=== PATIENT | female | born 1980 | race Caucasian/White ===

== ENCOUNTER 2024-12-16 08:18 | Outpatient (REF) | payer OTHER, SELFPAY ==
--- OUTSIDE RECORDS SUMMARY | 2024-12-16 08:23 | XMS_ITS | Clinical Summary ---
Author Organization [facility] ity Address [address] [place] [address] Care Team Providers Care Mortgage Loan Funder Name Role Phone Shantelle Liu MD Primary Care Prov ider Allergies No known active allergies Medications ibuprofen (ADVIL,MOTRIN) 600 mg tablet Take 1 tablet (600 mg total) by mouth 1 (one) time. for 1 dose. - 10/30/2017 Active multivit with calcium,iron,min (MULTIPLE VITAMIN, WOMENS ORAL) Take by mouth. Active loratadine (CLARITIN ORAL) Take by mouth. Active Active Problems Problem Noted Date Diagnosed Date Anxiety 01/25/2009 Immunizations Name Administration Dates Next Due Hepatitis B (Kvoiddi-C-Edsdc , Recombivax HB-Adult) 19yo and older 03/10/2002 Influenza Quadravalent, MDCK , 0.5ml, with preservative (Flucelvax) 6mo and older 06/12/2017 Influenza trivalent, 0.5mL, preservative free (Fluarix; FluLaval; Fluzone) ages 6mo and older (Afluria) 3 years and older 08/15/2016 Influenza trivalent, with pr eservative (Fluzone; Afluria) 6mo and older 05/04/2015 Tdap Tetanus diptheria acell ular pertussis (Boostrix; Adacel) 7yo and older 01/16/2017 Social History Tobacco Use Types Packs/Day Years Used Date Smoking Tobacco: Never Assessed Comments Unknown Sex and Gender Information Value Date Recorded Sex Assigned at Not on file Legal Sex Female 12:37 PM EST Gender Identity Not on file Sexual Orientation Not on file Plan of Treatment Health Maintenance Due Date Last Done Comments Breast Cancer Screening 1982 Hepatitis B Vaccines (2 of 3 - 19+ 3-dose series) 04/07/2002 03/10/2002 Cervical Cancer Screening: P ap Smear 07/05/2018 07/05/2015, 07/05/2015 COVID-19 Vaccine (1 - 2023-2 5 season) 2024 Depression Screening 09/06/2024 Social Influencers of Health Screening 09/06/2024 Influenza Vaccine (Season Ended) 2025 06/12/2017, 08/15/2016, 05/04/2015 DTaP,Tdap,and Td Vaccines (2 - Td or Tdap) 01/16/2027 01/16/2017 Hepatitis C Screening Completed 06/22/2015 HIV Screening Completed 07/28/2016 HIB Vaccines Aged Out No longer eligi ble based on patient's age to complete this topic HPV Vaccines Aged Out No longer eligi ble based on patient's age to complete this topic Hepatitis A Vaccines Aged Out No long er eligible based on patient's age to complete this topic IPV Vaccines Aged Out No longer eligi ble based on patient's age to complete this topic MMR Vaccines Aged Out No longer eligi ble based on patient's age to complete this topic Meningococcal ACWY Vaccine Aged Out N o longer eligible based on patient's age to complete this topic Meningococcal B Vaccine Aged Out No l onger eligible based on patient's age to complete this topic Pneumococcal Vaccine: Pediatrics (0 to 5 Years) and At-Risk Patients (6 to 64 Years) Aged Out No longer eligible b ased on patient's age to complete this topic RSV Immunization Patients Under 20 months Aged Out No longer eligible b ased on patient's age to complete this topic Varicella Vaccines Aged Out No longer eligible based on patient's age to complete this topic Procedures Procedure Name Priority Date/Time Associated Diagnosis Comments HIV SCREENING Routine 07/28/2016 HPV Routine 07/05/2015 HEPATITIS C SCREENING Routine 06/22/2015 from Last 3 Months or Most Recently Relevant to Health Maintenance Results * HIV Screening (07/28/2016) Pathologist [facility] HIV Screening abstracted Historical Provider HEALTH MAINTENANCE Final Result * Cervical Cancer Screening: HPV (07/05/2015) Pathologist [facility] Cervical Cancer Screening: HPV negative, abstracted Historical Provider HEALTH MAINTENANCE Final Result * Hepatitis C Screening (06/22/2015) Pathologist [facility] Hepatitis C Screening abstracted [facility] Provider HEALTH MAINTENANCE Final Result from Last 3 Months or Most Recently Relevant to Health Maintenance Care Teams Mortgage Loan Funder Relationship Specialty Start Date End Date Shantelle Liu MD PCP - General Internal Medicine 01/30/15
[2024-12-16 10:17] LABS: MANUAL DIFF FLAG NO
[2024-12-16 10:28] LABS: Basophils Absolute Auto 0.1 X10*3/uL (0.0-0.2); Basophils Percent Auto 0.6 % (0-2); Eosinophils Absolute Auto 0.1 X10*3/uL (0.0-0.4); Eosinophils Percent Auto 0.9 % (0-4); Hematocrit 42.3 % (37.0-47.0); Hemoglobin 13.7 g/dl (12.0-16.0); Imm Gran Abs Auto 0.03 X10*3/uL (0.00-0.03); Imm Gran Pct Auto 0.4 % (0.0-0.4); Lymphocytes Absolute Auto 1.9 X10*3/uL (1.2-4.9); Lymphocytes Percent Auto 23.7 % (20-40); Mean Corpuscular HGB Conc 32.4 g/dl (31.0-35.0); Mean Corpuscular Hemoglobin 30.2 pg (27.0-33.0); Mean Corpuscular Volume 93.2 fL (80.0-98.0); Mean Platelet Volume 10.3 fL (9.4-12.3); Monocytes Absolute Auto 0.4 X10*3/uL (0.1-1.2); Monocytes Percent Auto 5.4 % (2-11); Neutrophils Absolute Auto 5.4 x10*3/uL (2.0-8.3); Platelet Count 228 X10*3/uL (160-400); Red Blood Count 4.54 X10*6/uL (4.20-5.50); Red Cell Distribution Width 11.8 % (11.0-16.0); White Blood Count 7.8 X10*3/uL (4.8-10.8)
[2024-12-16 10:53] LABS: Appearance Urine Clear; Color Urine Yellow; Glucose Urine UA Negative (Negative); Leukocyte Esterase Urine Small (1+) (Negative); Nitrite Urine Negative (Negative); Specific Gravity - Urine 1.025 (1.005-1.025); UMIC TRIGGER UACC YES; Urine Blood Negative (Negative); Urine Ketones Negative (Negative); Urine Protein Negative (Neg-Trace)
[2024-12-16 11:02] LABS: Cortisol Random 13.9 ug/dL
[2024-12-16 11:03] LABS: Bacteria Urine Trace (None Seen); Hyaline Casts Urine 0-2 /LPF (0-2); RBC Urine 0-2 /HPF (0-2); Squamous Epithelial Cell Urine 0-2 /HPF (0-2); UACC Culture Trigger YES
[2024-12-16 11:12] LABS: Alanine Aminotransferase 24 U/L (0-31); Albumin Level 4.2 g/dL (3.5-5.0); Alkaline Phosphatase 79 U/L (39-117); Anion Gap 9 (12-20); Aspartate Amino Transferase 21 U/L (5-31); Bilirubin Total 0.3 mg/dL (0.0-1.0); Blood Urea Nitrogen 20 mg/dL (9-16); Calcium 9.1 mg/dL (8.4-10.2); Carbon Dioxide 26 mmol/L (22-29); Chloride 109 mmol/L (96-108); Cholesterol 158 mg/dL (<200); Estimated Glomerular Filt Rate > 60; Glucose Fasting 90 mg/dL (60-99); HDL Cholesterol 57 mg/dL (>40); LDL Cholesterol Calculated 92 mg/dL (<100); Potassium 4.7 mmol/L (3.3-5.1); Sodium 139 mmol/L (135-145); TSH reflex Free T4 1.24 uIU/mL (0.32-4.0); Triglycerides 49 mg/dL (<150); Vitamin D 25-OH Total 23.5 ng/mL (>30)
[2024-12-16 11:16] LABS: Folate 6.6 ng/mL (> or = 4.0); Vitamin B12 517 pg/mL (200-900)
[2024-12-19 23:23] LABS: Follicle Stimulating Hormone 6.7 mIU/mL
[2024-12-20 03:17] LABS: Lyme Abs Screen <0.90 index
[2024-12-29 01:29] LABS: Estradiol Free 5.17 pg/mL; Estradiol, Ultrasensitive 267 pg/mL
== END 2024-12-16 08:19 | disposition home or self-care (01) ==
LOC: HO.10HDL 08:18
PROVIDERS: Visit Provider Physician Assistant
DX: Z00.00 Encounter for general adult medical examination without abnormal findings (principal); E55.9 Vitamin D deficiency, unspecified; R53.83 Other fatigue; F41.1 Generalized anxiety disorder; Z13.220 Encounter for screening for lipoid disorders; R73.01 Impaired fasting glucose
CPT/HCPCS: 36415; 80053; 80061; 81001; 82306; 82533; 82607; 82670; 82681; 82746; 83001; 83735; 84443; 85025; 86617; 86618; 87086

== ENCOUNTER 2025-05-17 09:57 | Outpatient (AMB) | payer BC, SELFPAY ==
--- NOTE | 2025-05-17 10:03 | A.OFFPC_ITS ---
Vital Signs 05/17/25 10:08 Height 5 ft 4.96 in Weight 153 lb 2 oz BMI 25.5 BP 118/70 Blood Pressure Location Rt brachial Position Sitting Respiration 12 Pulse 65 Pulse Source Pulse Oximeter Temp 98.5 F Temp Source Oral Pulse Oximetry (%) 98 Oxygen Delivery Method Room Air Intake Visit Reasons: cpe coming at 10 Intake Note: New patient visit Mail Handler Required: No Allergies No Known Allergies Allergy (Verified 05/17/25 10:06) Medication List - Last Reconciled 05/17/25 by Viki Whalen PA-C loratadine (Claritin) 10 mg PO DAILY Tobacco use date assessed: 05/17/25 Dental Screening Dental Screen Date: 05/17/25 Did you have a dental visit in the last 12 months?: Yes Did you have a dental problem in the last 6 months where you did not have access to dental care?: No Was dental information given to patient?: Patient has dentist HPI cpe coming at 10 HPI Details Pt is a 45 y/o female who presents today to establish care/physical exam. She has a hx of IBS, chronic sinusitis, exercise induced asthma Pulm: Uses albuterol as needed GI: has had a double endoscopy about 15 years ago. She has a hx of milk sensitivity. She states that ENT: has chronic sinusitis and had her deviation fixed about 15 years ago Psych: longstanding hx anxiety and depression. Following with a therapist. MSK: right shoulder pain that is been going on for the last year or so. She works as a dental hygienist and this is the said that she uses for scaling. She says that she does a lot of repetitive motions with this shoulder/arm. She gets a lot of popping and it feels like her shoulder is lacks at times and will pop in and out. She says that when she is running she has to run holding her shoulders more elevated so that way does not pop out of place. mammo: UTD, chin It Program Manager: [facility] Social History Housing: House Patient Tobacco Use Status: Never used Tobacco e-Cigarette/Vaping Use: Never Used Second Hand Smoke Exposure: No service: No Current occupational status: employed Current occupation: Dental hygenist Current occupational exposures/hazards: Yes Cognitive needs: No Hearing needs: No Vision needs: No Physical exam (Primary Care) Vital Signs: Last Vital Signs Temp 98.5 F 05/17/25 10:08 Pulse 65 05/17/25 10:08 Resp 12 05/17/25 10:08 BP 118/70 05/17/25 10:08 Pulse Ox 98 05/17/25 10:08 Oxygen Delivery Method Room Air 05/17/25 10:08 BMI result Body Mass Index 25.5 Tobacco/Smoking Status: Tobacco use Status Tobacco use date assessed 05/17/25 05/17/25 10:11 Patient Tobacco Use Status Never used Tobacco 05/17/25 10:11 e-Cigarette/Vaping Use Never Used 05/17/25 10:11 Const Orientation/consciousness: patient oriented x3 HENMT Ears: hearing grossly normal bilaterally and TM's normal bilaterally General nose exam: No nasal polyps present Face and sinus: Yes sinuses nontender Mouth: Normal oral and palatal mucosa present Eyes Pupils: Equal, round and reactive pupils present EOM: EOMs intact bilaterally Neck Neck: Yes full ROM and Yes no lymphadenopathy Thyroid: Thyroid normal Chest Chest palpation & inspection: normal inspection of the chest Resp Auscultation: clear to auscultation bilaterally Cardio Rate: regular rate Rhythm: regular rhythm Heart sounds: S1 normal heart sound present and S2 normal heart sound present Peripheral pulses: Peripheral pulses 2+ throughout GI Other: Soft, nontender Auscultation: normal bowel sounds Rectal Exam - Female: deferred General: Yes no CVA tenderness Back/Spine/Pelvis Other: Nontender Back: no CVA tenderness Skin General skin exam: no rashes or lesions noted Neuro General: patient oriented x3, gait normal, CN's II-XI intact bilaterally and leonardo p tendon reflexes 2+ bilaterally Cranial nerves: Yes Equal, round and reactive pupils present Motor exam (neuro): 5/5 motor strength present throughout Sensory Exam: double simultaneous stimulation for sensation normal Coordination: [id number] test normal and Romberg test negative Extrem General: Yes normal to inspection and Yes full ROM Psych Affect: normal affect Attitude: cooperative Thought process: Normal thought process present Thought content: Normal thought content present Insight: Good insight present (Psych) Judgement: Good judgement present (Psych) Coding Level of Care Code Est Pt Prev Care 40-64y(71579) Diagnoses Routine general medical examination at a health care facility Z00.00 Vitamin D deficiency E55.9 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 Labs reviewed. (2) Vitamin D deficiency: Code(s): E55.9 - Vitamin D deficiency, unspecified Category: Medical Plan: Intermittently using supplement. We will check labs (3) Instability of right shoulder joint: Code(s): M25.311 - Other instability, right shoulder Category: Medical Plan: Imaging ordered. We will follow up pending test results. Encouraged supportive therapy like PT or chiropractor at this point. If symptoms persist advised to let me know and we will consider MRI Orders: Orders XR shoulder RT min 2V Today M25.311 - Other instability, right shoulder, M25.511 - Pain in right shoulder Vitamin D 25-OH Total Today E55.9 - Vitamin D deficiency, unspecified Medications: New albuterol sulfate 90 mcg/actuation (Ventolin HFA) 2 puffs inhalation 6XD PRN 8.5 grams 3RF shortness of breath or wheezing
[2025-05-17 10:08] VITALS: BP 118/70; PULSE 65; RESP 12; TEMP 36.9; O2SAT 98; BMI 25.5
--- OUTSIDE RECORDS SUMMARY | 2025-05-17 12:05 | XMS_ITS | Clinical Summary ---
Author Organization [facility] ity Address [address] [place] [address] Care Team Providers Care Foam Machine Operator Name Role Phone Shantelle Liu MD Primary [...] Name Administration Dates Next Due Hepatitis B (Bxqolha-A-Ujbem , Recombivax HB-Adult) 19yo and older 03/10/2002 [...] Screening: P ap Smear 07/05/2018 07/05/2015, 07/05/2015 Depression Screening 08/24/2024 Social Influencers of Health Screening 09/06/2024 COVID-19 Vaccine (1 - 2023-2 5 season) 2025 Influenza Vaccine (#1) 2025 7, 08/15/2016, 05/04/2015 DTaP,Tdap,and Td Vaccines (2 - Td or Tdap) 01/16/2027 01/16/2017 RSV Immunization Adult Patients (1 - 1-dose 75+ series) 2057 Hepatitis C Screening Completed 06/22/2015 HIV Screening [...] 5 Years) and At-Risk Patients (6 to 49 Years) Aged Out No longer eligible b [...] Health Maintenance Results * HIV Screening (07/28/2016) [facility] HIV Screening abstracted [facility] Provider HEALTH MAINTENANCE Final Result * Cervical Cancer Screening: HPV (07/05/2015) [facility] Cervical Cancer Screening: HPV negative, abstracted [facility] Provider HEALTH MAINTENANCE Final Result * Hepatitis C Screening (06/22/2015) [facility] Hepatitis C Screening abstracted [facility] Provider HEALTH MAINTENANCE Final Result from Last 3 Months or Most Recently Relevant to Health Maintenance Care Teams Foam Machine Operator Relationship Specialty Start Date End Date Shantelle Liu MD PCP - General Internal Medicine 01/30/15
== END 2025-05-17 10:46 | disposition home or self-care (01) ==
PROVIDERS: PCP Physician Assistant; Visit Provider Physician Assistant
DX: Z00.00 Encounter for general adult medical examination without abnormal findings (principal); E55.9 Vitamin D deficiency, unspecified; M25.311 Other instability, right shoulder